=== PATIENT | female | born 1985 | race Caucasian/White ===

== ENCOUNTER 2017-05-14 20:50 | Emergency (ER) | payer OTHER ==
[~2017-05-14] VITALS: Ht 154.9 cm; Wt 106.0 kg
[2017-05-14 21:47] VITALS: Ht 154.9 cm; Wt 106.0 kg
[2017-05-14] MEDS ORDERED: ALBUTEROL 0.083% (NEB) 2.5 MG/3 ML AMP HHN STA ×2 (22:51→23:09)
[2017-05-14] MEDS ORDERED: IPRATROPIUM (NEB) 0.5 MG/2.5 ML AMP HHN ONE ×2 (23:00→23:30)
[2017-05-14] MEDS ORDERED: METHYLPREDNISOLONE 125 MG INJ IM ONE (23:00)
--- NOTE | 2017-05-14 23:37 | ERD ---
ER Documentation Chief Complaint Date/Time DATE: 05/14/17 TIME: 22:49 Chief Complaint sob and audible wheezing x 2 days ago inhaler not working HPI 31-year-old female who presents emergency department for shortness of breath and difficulty breathing for 2 days but got worse today. LMP: 04/15/2017. A0. Denies headache, dizziness, blurry vision, neck pain, throat pain, difficulty swallowing, loss of appetite, abdominal pain, nausea, vomiting, urinary symptoms , constipation, diarrhea, loss of bowel bladder control, recent long travel, recent exposure to any illness, recent antibiotic use in the last 3 months, fever, chills. No known drug allergies. Denies any past medical histories. No surgical history. Medication: Denies any prescription medication. Social: Works as a [employer]. Occasional drinks alcoholic beverages. Denies smoking cigarettes, use of illegal drugs. ROS All systems reviewed and are negative except as per history of present illness. Medications Home Meds Active Scripts Azithromycin* (Zithromax*) 250 Mg Tablet, 250 MG PO .ZPACK DIRECTED, #6 TAB TAKE 500 MG (2 TABS) THE FIRST DAY THEN 250 MG (1 TAB) DAYS 2-5 Prov:GILDA VUONG 05/15/17 Albuterol Sulfate* (Proair HFA*) 8.5 Gm Hfa.aer.ad, 2 PUFF INH Q4, #1 INHALER Prov:GILDA VUONG 05/15/17 Prednisone* (Prednisone*) 20 Mg Tab, 60 MG PO DAILY for 5 Days, TAB Prov:GILDA VUONG 05/15/17 Allergies Allergies: Coded Allergies: No Known Allergy (Unverified , 05/14/17) PMhx/Soc Medical and Surgical Hx: pt denies Surgical Hx Hx Alcohol Use: Yes Hx Substance Use: No Hx Tobacco Use: No Smoking Status: Never smoker Physical Exam Vitals Vital Signs Date Time Temp Pulse Resp B/P Pulse Ox O2 Delivery O2 Flow Rate FiO2 05/15/17 01:42 98.5 96 20 120/75 96 Room Air 05/14/17 23:30 89 24 97 21 05/14/17 23:04 89 20 97 21 05/14/17 21:47 99.1 62 18 138/91 96 Physical Exam Const: [] Head: Atraumatic Eyes: Normal Conjunctiva ENT: Normal External Ears, Nose and Mouth. Throat: Uvula is midline nondisplaced. Tonsils are +1 bilaterally without redness without exudates. Tolerating secretions. Patent airway. Speaks full and clear sentences. Neck: Full range of motion..~ No meningismus. Resp: Inspiratory and expiratory wheezing bilaterally. Cardio: Regular rate and rhythm, no murmurs Abd: Soft, non tender, non distended. Normal bowel sounds Skin: No petechiae or rashes Back: No midline or flank tenderness Ext: No cyanosis, or edema Neur: Awake and alert Psych: Normal Mood and Affect Result Diagram: 05/14/17 2337 05/14/17 2337 Results 24 hrs Laboratory Tests Test 05/14/17 23:37 White Blood Count 5.510^3/ul Red Blood Count 5.0810^6/ul Hemoglobin 14.9g/dl Hematocrit 45.8% Mean Corpuscular Volume 90.2fl Mean Corpuscular Hemoglobin 29.3pg Mean Corpuscular Hemoglobin Concent 32.5g/dl Red Cell Distribution Width 12.7% Platelet Count 81983^3/UL Mean Platelet Volume 11.4fl Neutrophils % 60.6% Lymphocytes % 24.4% Monocytes % 13.0% Eosinophils % 0.7% Basophils % 0.4% Nucleated Red Blood Cells % 0.0/100WBC Neutrophils # 3.310^3/ul Lymphocytes # 1.310^3/ul Monocytes # 0.710^3/ul Eosinophils # 0.010^3/ul Basophils # 0.010^3/ul Nucleated Red Blood Cells # 0.010^3/ul Sodium Level 142mmol/L Potassium Level 3.4mmol/L Chloride Level 101mmol/L Carbon Dioxide Level 29mmol/L Anion Gap 15 Blood Urea Nitrogen 11mg/dl Creatinine 0.78mg/dl Glucose Level 102mg/dl Calcium Level 9.2mg/dl Magnesium Level 1.9mg/dl Total Bilirubin 0.3mg/dl Direct Bilirubin 0.00mg/dl Indirect Bilirubin 0.3mg/dl Aspartate Amino Transf (AST/SGOT) 18IU/L Alanine Aminotransferase (ALT/SGPT) 38IU/L Alkaline Phosphatase 112IU/L Total Protein 8.6g/dl Albumin 4.3g/dl Globulin 4.30g/dl Albumin/Globulin Ratio 1.00 Current Medications Medications (Trade) Dose Ordered Sig/Brisa Route PRN Reason Start Time Stop Time Status Last Admin Dose Admin Albuterol (Proventil 0.083% (Neb)) 5 mg ONCE STAT [facility] 05/14/17 22:51 05/14/17 22:53 DC 05/14/17 23:02 Ipratropium [place] (Atrovent 0.02% (Neb)) 0.5 mg ONCE ONCE N 05/14/17 23:00 05/14/17 23:01 DC 05/14/17 23:02 Methylprednisolone Sodium Succinate (Solu-Medrol) 125 mg ONCE ONCE IM 05/14/17 23:00 05/14/17 23:01 DC 05/14/17 23:46 Albuterol (Proventil 0.083% (Neb)) 10 mg ONCE STAT [facility] 05/14/17 23:09 05/14/17 23:11 DC 05/14/17 23:28 Ipratropium [place] (Atrovent 0.02% (Neb)) 1 mg ONCE ONCE [facility] 05/14/17 23:30 05/14/17 23:31 DC 05/14/17 23:29 Procedures/MDM 31-year-old female who presents emergency department for shortness of breath and difficulty breathing for 2 days but got worse today. LMP: 04/15/2017. A0. Denies headache, dizziness, blurry vision, neck pain, throat pain, difficulty swallowing, loss of appetite, abdominal pain, nausea, vomiting, urinary symptoms , constipation, diarrhea, loss of bowel bladder control, recent long travel, recent exposure to any illness, recent antibiotic use in the last 3 months, fever, chills. No known drug allergies. Denies any past medical histories. No surgical history. Medication: Denies any prescription medication. Social: Works as a [employer]. Occasional drinks alcoholic beverages. Denies smoking cigarettes, use of illegal drugs. Physical exam: Throat: Uvula is midline nondisplaced. Tonsils are +1 bilaterally without redness without exudates. Tolerating secretions. Patent airway. Speaks full and clear sentences. Inspiratory and expiratory wheezing bilaterally. Regular rate and rhythm of the heart. Active bowel sounds. No abdominal tenderness. Negative Homans sign bilaterally. No neurovascular deficits. No neurological deficits. Disease process was explained to the patient. She verbalized understanding and agreed with the diagnostic tests, treatment, plan of care. X-ray of the chest: Bronchial wall thickening in keeping with asthma. Lungs are clear. Negative for focal lung consolidation. Blood works: Reviewed. POC : Negative. Treatment: Solu-Medrol IV 1. Albuterol and Atrovent continuous. Reevaluation: Patent airway. Speaks full and clear sentences.Respirations even and unlabored. Lung sounds are clear to auscultation. Regular rate and rhythm with the heart. Active bowel sounds. No abdominal tenderness. Stated that she feels much better this time. Differential diagnosis: Pulmonary embolism versus status asthmaticus versus asthma exacerbation versus pneumonia versus asthmatic bronchitis versus shortness of breath Final diagnosis: Acute asthma exacerbation. Asthmatic bronchitis Prescription: Prednisone. Pro-air. Azithromycin. Follow-up with primary care physician the next 24-48 hours. Come back here in the emergency department for any new symptoms or any worsening of symptoms. All questions and concerns are answered. Patient verbalized understanding and agreed with the plan of care. Hemodynamically stable on discharge. Departure Diagnosis: Primary Impression: Shortness of breath Additional Impression: Asthma exacerbation Condition: Stable Additional Instructions: Follow-up with primary care physician the next 24-48 hours. Come back here in the emergency department for any new symptoms or any worsening of symptoms. All questions and concerns are answered. Patient verbalized understanding and agreed with the plan of care. GILDA VUONG May 14, 2017 23:37
--- NOTE | 2017-05-14 23:41 | RADRPT ---
PROCEDURE: PA and lateral chest x-ray. CLINICAL INDICATION: 31 years of age, female. Asthma. TECHNIQUE: PA and lateral views of the chest. COMPARISON: None available. FINDINGS: Cardiomediastinal contours are normal. Mild bronchial wall thickening is in keeping with asthma. Lungs are otherwise clear and normally inf lated. Negative for pleural effusion or pneumothorax. No acute bony abnormality. IMPRESSION: Bronchial wall thickening in keeping with asthma. Lungs are clear. Negative for focal lung consolida tion. RPTAT: HCTS Physician Jessica Date Time Electronically viewed and signed by Physician Jessica on 05/14/2017 23:41 CS/
[2017-05-14 23:58] LABS: BASOPHILS % 0.4 % (0.0-2.0); EOSINOPHILS % 0.7 % (0.0-7.0); HEMATOCRIT 45.8 % (37.0-47.0); HEMOGLOBIN 14.9 g/dl (12.0-16.0); LYMPHOCYTES # 1.3 10^3/ul (0.8-2.9); LYMPHOCYTES % 24.4 % (15.0-51.0); MEAN CORPUSCULAR HEMOGLOBIN 29.3 pg (29.0-33.0); MEAN CORPUSCULAR HGB CONC 32.5 g/dl (32.0-37.0); MEAN CORPUSCULAR VOLUME 90.2 fl (82.0-101.0); MEAN PLATELET VOLUME 11.4 fl (7.4-10.4); MONOCYTE # 0.7 10^3/ul (0.3-0.9); NEUTROPHIL # 3.3 10^3/ul (1.6-7.5); NEUTROPHILS % 60.6 % (39.0-77.0); PLATELET COUNT 201 10^3/UL (140-415); RED BLOOD COUNT 5.08 10^6/ul (4.20-5.40); RED CELL DISTRIBUTION WIDTH 12.7 % (11.5-14.5); WHITE BLOOD COUNT 5.5 10^3/ul (4.8-10.8)
[2017-05-15 00:15] LABS: ALBUMIN 4.3 g/dl (3.3-4.9); BILIRUBIN,INDIRECT 0.3 mg/dl (0-1.1); BILIRUBIN,TOTAL 0.3 mg/dl (0.2-1.3); CALCIUM 9.2 mg/dl (8.4-10.2); CREATININE 0.78 mg/dl (0.44-1.00); MAGNESIUM 1.9 mg/dl (1.7-2.5); POTASSIUM 3.4 mmol/L (3.5-5.1); TOTAL PROTEIN 8.6 g/dl (6.1-8.1)
[2017-05-15] MEDS ORDERED: PRED20TA PO (00:51)
[2017-05-15] MEDS ORDERED: AZIT250T94 PO (00:52)
[2017-05-15] MEDS ORDERED: ALBU8.5H3 INH (00:52)
[2017-05-15 01:42] VITALS: BP 120/75; PULSE 96; RESP 20; TEMP 98.5
== END 2017-05-15 01:43 | disposition home or self-care (01) ==
LOC: FTE 20:50
DX: J45.901 Unspecified asthma with (acute) exacerbation (principal)
CPT/HCPCS: 71020; 80053; 83735; 85025; 94644; 94664; 96372; J2930; Z7502; Z7610

== ENCOUNTER 2018-02-04 12:44 | Emergency (ER) | END 2018-02-04 15:10 | disposition home or self-care (01) ==

== ENCOUNTER 2018-02-06 09:39 | Emergency (ER) | END 2018-02-06 12:20 | disposition home or self-care (01) ==

== ENCOUNTER 2018-06-05 00:20 | Emergency (ER) | END 2018-06-05 04:50 | disposition home or self-care (01) ==